=== PATIENT | male | born 1950 | race Caucasian/White ===

== ENCOUNTER → 2017-03-20 | Outpatient (CLI) | payer OTHER ==
[~2017-03-20] MED LIST: ASPIRIN81 M2 PO; BUMETANIDE2 M1 PO; COL-RITE250 MG PO; FUROSEMIDE40 MG PO; HYDROCODON-ACE1 EAC5 PO; K-DUR20 ME1; LEXAPRO20 MG PO; LIPITOR20 MG PO; LISINOPRIL20 MG PO; METOPROLOL SUC100 MG PO; MIRTAZAPINE30 M1 PO; NAPROSYN500 MG PO; OXYGEN; PANTOPRAZOLE SO40 MG PO; PERCOCET5/325 PO; PRAZOSIN HCL2 MG PO; PREDNISONE PO; PROAIR HFA8.5 GM INH; QUETIAPINE FUM400 MG PO; RIFAMPIN300 M1 PO; SPIRIVA18 MCG INH; SYNTHROID25 MCG PO; VITAMIN D250000 UNIT PO
--- NOTE | ~2017-03-20 | EKG ---
PATIENT: IAN SAL UNIT #: [id number] Ventricular Rate: 68 BPM Atrial Rate: 68 BPM P-R Interval: 154 ms QRS Duration: 80 ms Q-T Interval: 384 ms QTC Calculation(Bezet): 408 ms P [place]: -3 degrees Calculated R [place]: 16 degrees Calculated T [place]: 44 degrees Diagnosis Line: Normal sinus rhythm Diagnosis Line: Normal ECG Diagnosis Line: No previous ECGs available Diagnosis Line: Confirmed by MONI EUGENE MD ([id number]) on Diagnosis Line: 03/21/2017 4:00:09 PM INTERPRETING MDDebby CHUNG
[2017-03-20 11:51] LABS: HEMATOCRIT 41.7 % (38.0-50.0); HEMOGLOBIN 13.1 gm/dL (13.0-16.0); MEAN CORPUSCULAR HEMOGLOBIN 27.4 PG (28-34); MEAN CORPUSCULAR HGB CONC 31.4 g/dL (30-36); MEAN PLATELET VOLUME 8.1 FL (6.5-11.5); RED BLOOD COUNT 4.79 X10e (3.90-5.60); WHITE BLOOD COUNT 7.8 X10e3 (4.0-10.5)
[2017-03-20 11:54] LABS: URINE APPEARANCE CLEAR; URINE BILIRUBIN NEG (NEG); URINE BLOOD NEG (NEG); URINE COLOR YELLOW; URINE GLUCOSE NEG (NEG); URINE KETONE NEG (NEG); URINE LEUKOCYTE ESTERASE NEG (NEG); URINE NITRATE NEG (NEG); URINE PH 6.5 (5-8); URINE PROTEIN NEG (NEG); URINE SPECIFIC GRAVITY 1.014 (1.003-1.035); URINE UROBILINOGEN 0.2 MG/DL (NEG)
[2017-03-20 11:58] LABS: URINE SOURCE CLEAN CATCH
[2017-03-20 11:59] LABS: CULTURE INDICATED? NO
[2017-03-20 12:18] LABS: BUN/CREATININE RATIO 14.28; CALCIUM SERUM 8.7 mg/dL (8.4-10.2); CREATININE SERUM 0.7 mg/dL (0.6-1.4); GLOM FILT RATE Estimated 98.4 mL/min (>60); POTASSIUM 4.7 mmol/L (3.5-5.1)
== END | disposition home or self-care (01) ==
LOC: CAMB 10:50
PROVIDERS: Orthopaedic Surgery
DX: Z01.818 Encounter for other preprocedural examination (principal); M75.101 Unspecified rotator cuff tear or rupture of right shoulder, not specified as traumatic; M12.811 Other specific arthropathies, not elsewhere classified, right shoulder
CPT/HCPCS: 36415; 80048; 81003; 85027; 87070; 93005

== ENCOUNTER 2017-04-02 05:38 | Inpatient (IN) | payer OTHER ==
--- NOTE | ~2017-04-02 | DS ---
Unit #: [id number] #: [id number] Patient: IAN SAL SR [id number] [address] [place], [place] [address] [id number] I MR#: [id number] NAME: IAN SAL ROOM: [facility] Age: 66 Sex: M Admission Date: 04/02/2017 : 1950 Discharge Date: 04/05/2017 Attending Physician: Travis Dowell M.D. Primary Care Physician: Generic Doctor Not In System DISCHARGE SUMMARY ADMISSION DIAGNOSIS Right massive rotator cuff tear. DISCHARGE DIAGNOSIS Status post right reverse shoulder arthroplasty. SECONDARY DIAGNOSES 1. Chronic obstructive pulmonary disease. 2. Hypertension. 3. PTSD. 4. Hyperlipidemia. 5. Gastroesophageal reflux disease. 6. Hypothyroidism. 7. Hypoxia. PROCEDURES PERFORMED The patient underwent right reverse shoulder arthroplasty on the day of admission. HISTORY This is a 66-year-old male who has had a long history of right shoulder pain with right shoulder massive rotator cuff tear. He has had some type of surgery in the past. However, specifically what was done is unknown. He has failed both surgical as well as conservative management, so agreed to undergo operative treatment with right reverse shoulder arthroplasty. HOSPITAL COURSE The patient tolerated the procedure well and was transferred to the PACU and consequently the orthopedics floor. Postoperative day one he developed some hypoxia and was transferred to the unit. Pulmonary consult was obtained. He was treated with BiPAP and steroids. The patient seemed to respond very quickly to this and on postoperative day two was transferred out of the unit to the telemetry unit. He developed some restlessness and dry mouth. He was fidgety with difficulty sleeping. Pain was well controlled. He continues to be on oxygen at 2 liters on postoperative day three. Alcohol withdrawal protocol was started. The patient is quite anxious to be discharged. However, he continues to be on 2 liters of oxygen. With pulmonology and HIPS input will discharge with their approval and possible home O2 if required by pulmonology. DISCHARGE MEDICATIONS 1. Albuterol inhaler per pulmonary. 2. Prednisone 20 mg 2 tablets daily times 3 days per pulmonary. 3. Spiriva inhaler once daily. Unit #: [id number] #: [id number] Patient: IAN SAL SR 4. Lexapro 10 mg at bedtime. 5. Remeron 15 mg at bedtime. 6. Seroquel 200 mg at bedtime. 7. Dulera inhaler per pulmonary. 8. Metoprolol 50 mg once daily. 9. Senokot tablet b.i.d. 10. Bumetanide 1 mg daily. 11. Lipitor 20 mg 1 p.o. at bedtime. 12. Lisinopril 10 mg once daily. 13. Minipress 2 mg at bedtime. 14. Aspirin 81 mg daily at bedtime. 15. Pantoprazole 40 mg 1 b.i.d. 16. Potassium chloride 20 mEq b.i.d. 17. Synthroid 25 mcg once daily. 18. Vitamin D 50,000 units once weekly. 19. He was sent home on Percocet 5/325 mg #60, 1 p.o. q.6 h. p.r.n. pain. DISCHARGE INSTRUCTIONS Discharge instructions were given to him and gone over with him and are given to him in the form of a handout for him to have and review at home as needed. This includes covering sling, dressing and operative site care. The patient will follow up with Dr. Dowell in the office as scheduled postoperatively. If any concerns or questions he will call our office, [phone]. Dictated by... Courtney Alexander P.A.-C. for Maye LeviKP/gz TD: 04/05/2017 14:06 JOB #: [id number] DISCHARGE SUMMARY Page 1 of 1 X Courtney Alexander DISCHARGE SUMMARY
--- NOTE | ~2017-04-02 | CO ---
Unit #: [id number] #: [id number] Patient: IAN SAL SR [id number] [address] [place], [place] [address] [id number] I MR#: [id number] NAME: IAN SAL SR ROOM: 55 Age: 66 Sex: M Admission Date: 04/02/2017 : 1950 Attending Physician: Travis Dowell M.D. Primary Care Physician: Gentry Doctor Not In System Consultation Date: 04/04/2017 CONSULTATION REPORT REASON FOR CONSULTATION Respiratory failure. HISTORY OF PRESENT ILLNESS A 66-year-old gentleman with a known history of COPD, takes Symbicort at home and generally does well. He came to the hospital for right shoulder replacement. He apparently became sleepy yesterday. Arterial blood gas revealed respiratory acidosis and was transferred to the intensive care unit for mask ventilation. He also received steroids and nebulized bronchodilators. The patient states he had very little recollection of the event. He said he knew people were around him, but really could not respond. He denies shortness of breath, wheezing, mucopurulent sputum, cough, hemoptysis, pleurisy, chest pain. He has some mild cough with clear sputum. PAST MEDICAL HISTORY Remarkable for "mild" COPD, history of PTSD, hypercholesterolemia, depression, hypothyroidism, hypertension. MEDICATIONS At home according to med rec sheet, prazosin, Seroquel, Protonix, hydrocodone, aspirin, Bumex, lisinopril, metoprolol, mirtazapine, potassium, Lipitor, Lexapro, Synthroid. ALLERGIES No known medical allergies. SOCIAL HISTORY Quit smoking earlier this year. His of emphysema in October. FAMILY HISTORY No definite familial lung disease. REVIEW OF SYSTEMS He denies snoring or daytime sleepiness, certainly has the body habitus of sleep apnea. Currently denies any pulmonary symptoms as above. Denies chest pain, palpitations, abdominal pain, melena, hematochezia, hematuria, dysuria, focal weakness, paresthesias as unexplained by surgery. He did fall prior to surgery and has right hip bruise. Further review of systems negative. PHYSICAL EXAMINATION VITAL SIGNS: Reveals a patient, who is afebrile, pulse 96, respiratory Unit #: [id number] #: [id number] Patient: IAN SAL SR rate is 22, blood pressure is 112/64, 5 feet 8 inches, 248 pounds, BMI is 37. HEENT: Pupils are equal, round, and reactive to light. Sclerae anicteric. Head atraumatic. NECK: Supple. No supraclavicular or cervical adenopathy appreciated. He is edentulous with dentures in place. Mallampati class IV oropharynx. CHEST: Equal breath sounds. He does have some prolonged expiratory phase and some expiratory wheeze, best heard posterior. No consolidation. CARDIAC: Reveals regular rate and rhythm. No pathologic murmur, rub, or gallop. ABDOMEN: Soft and nontender. No hepatomegaly or rebound. EXTREMITIES: Reveal no clubbing, cyanosis, or significant edema. No calf tenderness. SKIN: Warm and dry without rash or diaphoresis. There is a bruise on his upper right leg. He is postop shoulder surgery on the right. NEUROLOGIC: No unexplained muscle or sensory deficits. DIAGNOSTIC STUDIES IMAGING STUDIES: Chest x-ray reveals mild right hemidiaphragm elevation and some bandlike atelectasis. LABORATORY RESULTS: Arterial blood gas reveals a pH of 7.2, pCO2 of 71, pO2 of 70 on 6 L. Repeat arterial blood gas yesterday afternoon, pH is 7.32, pCO2 of 53, pO2 of 78 on mask ventilation. He currently is awake and alert on low-flow oxygen. Saturation is 94%. He told me that he walked around the ICU with physical therapy and his saturations remained about 93%. BUN is 13, creatinine 0.9, potassium is 5.5. This was yesterday and apparently a repeat BMP has been drawn but is pending. White blood cell count is 10.7, hemoglobin is 10.1. CARDIOVASCULAR STUDIES: EKG unremarkable. IMPRESSION 1. Acute hypercapnic hypoxemic respiratory failure, most likely secondary to medication effect, chronic obstructive pulmonary disease and possible underlying sleep apnea, overall clinically improved. 2. Chronic obstructive pulmonary disease with mild bronchospasm. 3. Suspect obstructive sleep apnea given exam and clinical setting. 4. Postoperative shoulder surgery. 5. Posttraumatic stress disorder, etc. PLAN Treatment of his COPD with steroids and nebulized bronchodilators, incentive spirometry. I will check a room air arterial blood gas, and if compensated and adequate oxygenation, the patient theoretically could go home later today. If he remains hypoxemic or with persistent respiratory acidosis, I would continue treatment inpatient. If he does require inpatient treatment, transfer to telemetry is adequate. He would get a brief pulse of steroids, continue his Symbicort and albuterol. I would suggest outpatient PFTs and consider outpatient nocturnal polysomnography. Dictated by... Maye Giles/latricia TD: 04/05/2017 07:10 Unit #: [id number] #: [id number] Patient: IAN SAL SR JOB #: [id number] CC: Travis Dowell M.D. CONSULTATION REPORT Page 1 of 1 X Tayo Jones MD X CONSULTATION REPORT
--- NOTE | ~2017-04-02 | CO ---
Unit #: [id number] #: [id number] Patient: IAN SAL SR [id number] [address] [place], [place] [address] [id number] I MR#: [id number] NAME: IAN SAL SR ROOM: [facility] Age: 66 Sex: M Admission Date: 04/02/2017 : 1950 Attending Physician: Travis Dowell M.D. Primary Care Physician: Generic Doctor Not In System CONSULTATION REPORT REASON FOR CONSULTATION Hypoxia. HISTORY OF PRESENT ILLNESS The patient is a 66-year-old gentleman. We were asked to see in consult for hypoxia this afternoon. The patient is postop #2 from a right rotator cuff repair with Dr. Dowell. The patient have been noted to be somnolent earlier this morning, at which time all narcotics had been held. The patient had an ABG performed this afternoon for decreased mental status at which time, the pH was noted to 7.21, pCO2 was 71, and PO2 was 70. The patient does report a history of tobacco abuse, smokes approximately 3 to 4 cigarettes per day prior to surgery. No diagnosis of COPD and has never been seen by Pulmonary as well. The patient is arousable and is able to answer questions in the room, but falls asleep very quickly. REVIEW OF SYSTEMS He denies any shortness of breath at this time. Does endorse right shoulder pain. Denies any chest pain or abdominal pain. No nausea or vomiting. Ten out of 14 systems were reviewed, negative unless noted above. PAST MEDICAL HISTORY Significant for tobacco abuse as well as what appears to be hypertension. PAST SURGICAL HISTORY Significant for rotator cuff repair on April 02, 2017. ALLERGIES Apparently, no known drug allergies. MEDICATIONS At this time, were reviewed per the current MAR including the patient's oxycodone as well as scheduled Tylenol. SOCIAL HISTORY The patient does report smoking approximately 3 to 4 cigarettes per day. Denied alcohol use. FAMILY HISTORY Noncontributory at this time. PHYSICAL EXAMINATION VITAL SIGNS: The patient's temperature 97.8, heart rate 104, blood pressure 129/82, respiratory rate of 20, saturating 95% on 6 L nasal Unit #: [id number] #: [id number] Patient: IAN SAL SR. GENERAL: The patient appears to be an overweight middle-aged gentleman, who is in no acute distress, does arouse easily to questions and voice, but falls asleep just as quickly. HEENT: Pupils are equal and reactive to light. Oropharynx is clear. Mucous membranes appeared to be moist. Sclerae anicteric. NECK: Without lymphadenopathy. LUNGS: Noted for some mild to moderate expiratory wheezes anteriorly. No rales or rhonchi were appreciated. ABDOMEN: Obese. Positive bowel sounds. Soft and nontender. EXTREMITIES: No clubbing, cyanosis, or edema was noted. NEUROLOGIC: As stated, the patient does arouse easily to voice command, but drift off, may become drowsy quite easily. DIAGNOSTIC STUDIES IMAGING STUDIES: Chest x-ray has been ordered, but results are currently pending. LABORATORY RESULTS: White count of 9.5, hemoglobin of 10.5, platelets of 187. ASSESSMENT AND PLAN 1. Acute hypercapnic respiratory failure. I have asked RT to place the patient on BiPAP at this time. I have ordered an ABG to be checked one hour after BiPAP has been started, and also have requested Pulmonary consult as well, and I have spoken to Dr. Levy this afternoon myself. 2. Chronic obstructive pulmonary disease exacerbation. The patient does not have given diagnosis of chronic obstructive pulmonary disease. I have ordered one dose of IV Solu-Medrol given the patient's wheezing as well as q.4 hours DuoNeb and p.r.n. as well for shortness of breath. 3. Sedation. I have asked nurse to hold all narcotics until the patient is off the BiPAP at this time, and also checking a comprehensive metabolic panel as well this afternoon. Thank you for this consult. We will continue to follow. Dictated by... Aaron Oliver M.D. SARATH/latricia TD: 04/04/2017 14:26 JOB #: [id number] CONSULTATION REPORT Page 1 of 1 X X CONSULTATION REPORT
--- NOTE | ~2017-04-02 | CR72 ---
[facility] A Service of [facility] RADIOLOGY TEXT RESULTS PATIENT: IAN SAL SR LOCATION: [place] [address] : [birth year] UNIT #: [id number] AGE: [address]: Travis Dowell MD SEX: M ORDER DR: [id number] [facility] [address] [facility]. [place], [place] [address] [id number] I MR#: [id number] Acc #: [id number] NAME: IAN SAL SR : 1950 SEX: M STUDY DATE/TIME: 04/05/2017 6:25 UNIT: [facility] ROOM: [facility] STUDY DESCRIPTION: CR Chest Single View Portable Attending Physician: Travis Dowell M.D. Referring Physician: Dax King M.D. Ordering Physician: Dax King M.D. Primary Care Physician: Generic Doctor Not In System MEDICAL IMAGING REPORT This report is preliminary unless electronic signature is present EXAM Frontal chest, 04/05/2017. INDICATIONS 66-year-old male with shortness of air. Shoulder surgery 04/02/2017. Symptoms began today. Hypertension. TECHNIQUE Frontal chest compared with 04/03/2017. FINDINGS Postop changes right shoulder replacement present. Cardiac silhouette enlarged but stable. Lung volumes are low. The vascularity is within normal limits. Interval improvement of atelectasis associated with a minor fissure. There is persistent atelectasis in the right lung base. Mild volume loss on the right unchanged. No pneumothorax. IMPRESSION 1. Cardiomegaly. Persistent atelectasis in the right lung base and volume loss on the right. No pneumothorax. Dictated by... Josh Argueta M.D. THIS IS AN ELECTRONICALLY VERIFIED REPORT Josh Argueta M.D. at 04/06/2017 8:43 AM Leida TD: 04/05/2017 18:33 JOB #: [id number] MEDICAL IMAGING REPORT [facility] A Service of [facility] RADIOLOGY TEXT RESULTS PATIENT: IAN SAL SR [facility] [id number] : [birth year] UNIT #: [id number] AGE: [address]: Travis Dowell MD SEX: M ORDER DR: Page 1 of 1 COPY
--- NOTE | ~2017-04-02 | CR230 ---
[facility] A Service of [facility] RADIOLOGY TEXT RESULTS PATIENT: IAN SAL SR LOCATION: [facility] : [birth year] UNIT #: [id number] AGE: [address]: Travis Dowell MD SEX: M ORDER DR: [id number] [place] [address] [place], [place] [address] [id number] I MR#: [id number] Acc #: [id number] NAME: IAN SAL SR : 1950 SEX: M STUDY DATE/TIME: 04/02/2017 10:54 UNIT: [facility] ROOM: [facility] STUDY DESCRIPTION: CR Shoulder Min 2 View Rt Attending Physician: Travis Dowell M.D. Ordering Physician: Travis Dowell M.D. Primary Care Physician: Generic Doctor Not In System MEDICAL IMAGING REPORT This report is preliminary unless electronic signature is present EXAM Right shoulder 2 views INDICATION Postop right shoulder arthroplasty. COMPARISON No comparisons. FINDINGS There is a right shoulder arthroplasty. Hardware intact. Alignment anatomic. IMPRESSION Satisfactory appearance of the right shoulder arthroplasty. Dictated by... Art Villegas M.D. THIS IS AN ELECTRONICALLY VERIFIED REPORT Art Villegas M.D. at 04/03/2017 7:25 PM HERMINIA/lucille TD: 04/02/2017 13:07 JOB #: [id number] MEDICAL IMAGING REPORT Page 1 of 1 COPY
--- NOTE | ~2017-04-02 | OR ---
Unit #: [id number] #: [id number] Patient: IAN MONSALVE SR [id number] [address] [address] [id number] I MR#: [id number] NAME: IAN MONSALVE SR ROOM: [facility] Date of Procedure: 04/02/2017 Admission Date: 04/02/2017 Surgeon: Travis Dowell M.D. : 1950 Attending Physician: Travis Dowell M.D. Primary Care Physician: Generic Doctor Not In System OPERATIVE REPORT PREOPERATIVE DIAGNOSIS Right shoulder cuff tear arthropathy. POSTOPERATIVE DIAGNOSES 1. Right shoulder cuff tear arthropathy. 2. Right shoulder biceps tenosynovitis. PROCEDURES PERFORMED 1. Right reverse shoulder arthroplasty. 2. Right shoulder long head of the biceps tenodesis. IMPLANTS 1. DJO Surgical size 12 press-fit AltiVate stem with a 32, neutral humeral socket liner. 2. DJO Surgical P2 base plate with a 32, neutral glenosphere. IT SALES EXECUTIVE Courtney Barrios. ANESTHESIA General with interscalene nerve block. ESTIMATED BLOOD LOSS 100 mL. COMPLICATIONS None apparent. DRAINS None. INDICATIONS FOR PROCEDURE Mr. Monsalve is a 66-year-old gentleman with right shoulder massive rotator cuff tear and cuff tear arthropathy. He has failed one prior shoulder operation. The exact nature of this is not clear as to whether this was an attempted rotator cuff repair. At this point, he has failed his prior surgical intervention as well as conservative treatment. He has developed cuff tear arthropathy. He now presents for right reverse shoulder arthroplasty. DESCRIPTION OF PROCEDURE The patient was identified in the preoperative holding area. The Unit #: [id number] #: [id number] Patient: IAN MONSALVE SR operative site was marked. Preoperative antibiotics were administered. A regional anesthetic block was performed. The patient was brought to the operating room and placed supine on the operating table. A general anesthetic was induced. The patient was positioned into the beach-chair position. The right upper extremity was then prepped and draped in a sterile fashion. A standard deltopectoral approach was performed. Dissection was carried down to the cephalic vein. The vein was retracted medially with the pectoralis major muscle. The subdeltoid space was developed. The underlying humeral head was exposed. The pseudo-capsular tissue was removed. There was a full-thickness rotator cuff tear involving supraspinatus and infraspinatus tendons. There was a subscapularis tear as well. The subscapularis was dissected free from the underlying conjoined tendon, identified and mobilized. What was remaining of this inferiorly was released off the inferior humeral neck. The biceps was identified in a subluxed or dislocated position medially. This was reduced back to its normal position and then tenodesis was performed to the superior border of the pectoralis major tendon. The biceps was thickened and hypertrophic, and demonstrated tearing throughout. Following the tenodesis, the biceps was then incised proximally and then released off the glenoid. The shoulder was dislocated anteriorly and the humeral head osteotomy was performed. Any remaining osteophytes were removed. The shoulder was subluxed posteriorly and a circumferential capsular release was performed. The axillary nerve was identified by digital palpation and protected throughout the procedure. Once we had adequate glenoid exposure, we then drilled the centering airline transport pilot hole. A reaming tap was inserted followed by sequential reaming to the desired depth. We then inserted the base plate and achieved excellent purchase. We then drilled 4 peripheral locking screws and then placed our real glenosphere. The set-screw was then placed as backup fixation. The humerus was brought back into the operative field. The subscapularis was assessed. This was then identified and mobilized. It was still scarred, atrophic, and not amenable to repair. The humerus was then reamed with a metaphyseal reamer. We then sounded the canal with a size 10 reamer. We inserted a size 12 stem. This was proximal bone and was quite soft. This was then impacted and seated to the desired depth. The shoulder was then trialed. We selected a 32 neutral component. The real 32, neutral humeral socket liner was opened and impacted in place. The shoulder was reduced and taken through range of motion. The shoulder was stable with satisfactory deltoid tension. The subscapularis was not repaired; again, this was contracted and atrophic. The wound was then irrigated with dilute Betadine solution followed by pulsatile lavage. The wound was closed in a layered fashion including 0 Vicryl, 2-0 Vicryl, and running Monocryl in the skin. Steri-Strips and sterile dressings were applied. DISPOSITION Stable to the recovery room. Dictated by... Travis Dowell M.D. [facility] Unit #: [id number] #: [id number] Patient: DORON TOROIAN TD: 04/03/2017 05:51 JOB #: [id number] OPERATIVE REPORT Page 1 of 1 X Travis Dowell MD X PROCEDURE OPERATIVE NOTE
--- NOTE | ~2017-04-02 | CR72 ---
[facility] A Service of [facility] RADIOLOGY TEXT RESULTS PATIENT: IAN SAL SR LOCATION: [address] : [birth year] UNIT #: [id number] AGE: [address]: Travis Dowell MD SEX: M ORDER DR: [id number] [facility] [address] [facility]. [place], [place] [address] [id number] I MR#: [id number] Acc #: [id number] NAME: IAN SAL SR : 1950 SEX: M STUDY DATE/TIME: 04/03/2017 14:07 UNIT: C4B ROOM: [facility] STUDY DESCRIPTION: CR Chest Single View Portable Attending Physician: Travis Dowell M.D. Ordering Physician: Travis Dowell M.D. Primary Care Physician: Generic Doctor Not In System MEDICAL IMAGING REPORT This report is preliminary unless electronic signature is present EXAM Portable chest 04/03 COMPARISON STUDIES None HISTORY Shortness of breath beginning today. Status post shoulder surgery on 04/02. FINDINGS AP view is obtained. Cardiac size is enlarged. Patient has atelectasis in the right base with elevation of the right hemidiaphragm. There is evidence of mild passive congestion. CONCLUSION Cardiomegaly. Mild right basilar atelectasis with elevation of the right hemidiaphragm. Dictated by... Vivek Willingham M.D. THIS IS AN ELECTRONICALLY VERIFIED REPORT Vivek Willingham M.D. at 04/04/2017 10:22 AM [place] TD: 04/03/2017 18:54 JOB #: [id number] MEDICAL IMAGING REPORT Page 1 of 1 COPY
[~2017-04-02 05:38] MED LIST changes: -NAPROSYN500 MG PO; -OXYGEN; -PERCOCET5/325 PO; -PREDNISONE PO; -PROAIR HFA8.5 GM INH; -RIFAMPIN300 M1 PO; -SPIRIVA18 MCG INH
[2017-04-03 03:11] LABS: BASOPHIL% 0.4 % (0-2.5); EOSINOPHIL# 0.1 X10e3 (0-0.7); HEMATOCRIT 34.2 % (38.0-50.0); HEMOGLOBIN 10.5 gm/dL (13.0-16.0); LYMPHOCYTE# 1.1 X10e3 (1.0-3.5); LYMPHOCYTE% 11.6 % (17.0-45.0); MEAN CELL VOLUME 88.7 FL (83-96); MEAN CORPUSCULAR HEMOGLOBIN 27.3 PG (28-34); MEAN CORPUSCULAR HGB CONC 30.8 g/dL (30-36); MEAN PLATELET VOLUME 7.6 FL (6.5-11.5); MONOCYTE# 1.3 X10e3 (0-1.0); MONOCYTE% 13.6 % (3.0-12.0); NEUTROPHIL% 73.4 % (40-75); PLATELET COUNT 187 X10e3 (140-420); RED BLOOD COUNT 3.85 X10e (3.90-5.60); RED CELL DISTRIBUTION WIDTH 14.4 % (11.0-15.5); WHITE BLOOD COUNT 9.5 X10e3 (4.0-10.5)
[2017-04-03 03:12] LABS: DIFF IND NO
[2017-04-03 14:08] LABS: ARTERIAL BLD GAS O2 SATURATION 91.3 % (90.0-100.0); ARTERIAL BLOOD GAS CARBOXY HB 1.6 %sat (0.0-9.0); ARTERIAL BLOOD GAS MET HB 0.7 %sat (0.0-2.0); ARTERIAL BLOOD GAS pH 7.206 (7.350-7.450)
[2017-04-03 14:10] LABS: ARTERIAL BLOOD GAS ALLEN TEST ABNORMAL; ARTERIAL BLOOD GAS ART SITE LEFT RADIAL; ARTERIAL BLOOD GAS DELIVERY NASAL CANNULA; ARTERIAL BLOOD GAS PCO2 70.8 mmHg (35.0-45.0); ARTERIAL BLOOD GAS PO2 70.3 mmHg (80.0-100)
[2017-04-03 15:43] LABS: ALBUMIN SERUM 2.7 g/dL (3.5-5.0); BILIRUBIN,TOTAL 0.7 mg/dL (0.2-2.0); BUN/CREATININE RATIO 14.44; CALCIUM SERUM 7.4 mg/dL (8.4-10.2); CREATININE SERUM 0.9 mg/dL (0.6-1.4); GLOM FILT RATE Estimated 88.7 mL/min (>60); PROTEIN TOTAL SERUM 5.5 g/dL (6.0-8.3)
[2017-04-03 15:46] LABS: POTASSIUM 5.5 mmol/L (3.5-5.1)
[2017-04-03 16:29] LABS: ARTERIAL BLD GAS O2 SATURATION 94.2 % (90.0-100.0); ARTERIAL BLOOD GAS CARBOXY HB 1.6 %sat (0.0-9.0); ARTERIAL BLOOD GAS HCO3 27.3 mmol/L; ARTERIAL BLOOD GAS MET HB 0.7 %sat (0.0-2.0); ARTERIAL BLOOD GAS PCO2 53.4 mmHg (35.0-45.0); ARTERIAL BLOOD GAS PO2 78.9 mmHg (80.0-100); ARTERIAL BLOOD GAS pH 7.317 (7.350-7.450)
[2017-04-03 16:30] LABS: ARTERIAL BLOOD GAS ALLEN TEST NORMAL; ARTERIAL BLOOD GAS ART SITE LEFT RADIAL; ARTERIAL DRAW? YES
[2017-04-04 06:09] LABS: BASOPHIL% 0.2 % (0-2.5); EOSINOPHIL% 0.1 % (0.0-7.0); HEMATOCRIT 31.9 % (38.0-50.0); HEMOGLOBIN 10.1 gm/dL (13.0-16.0); LYMPHOCYTE# 1.1 X10e3 (1.0-3.5); LYMPHOCYTE% 10.3 % (17.0-45.0); MEAN CELL VOLUME 86.8 FL (83-96); MEAN CORPUSCULAR HEMOGLOBIN 27.5 PG (28-34); MEAN CORPUSCULAR HGB CONC 31.6 g/dL (30-36); MEAN PLATELET VOLUME 8.1 FL (6.5-11.5); MONOCYTE# 1.5 X10e3 (0-1.0); MONOCYTE% 14.1 % (3.0-12.0); NEUTROPHIL# 8.1 X10e3 (1.5-7.1); NEUTROPHIL% 75.3 % (40-75); PLATELET COUNT 189 X10e3 (140-420); RED BLOOD COUNT 3.68 X10e (3.90-5.60); RED CELL DISTRIBUTION WIDTH 14.1 % (11.0-15.5); WHITE BLOOD COUNT 10.7 X10e3 (4.0-10.5)
[2017-04-04 06:19] LABS: DIFF IND NO
[2017-04-04 11:19] LABS: ALBUMIN SERUM 2.7 g/dL (3.5-5.0); BILIRUBIN,TOTAL 0.7 mg/dL (0.2-2.0); BUN/CREATININE RATIO 15.55; CALCIUM SERUM 8.1 mg/dL (8.4-10.2); CREATININE SERUM 0.9 mg/dL (0.6-1.4); GLOM FILT RATE Estimated 88.7 mL/min (>60); PROTEIN TOTAL SERUM 5.8 g/dL (6.0-8.3)
[2017-04-04 12:21] LABS: ARTERIAL BLD GAS O2 SATURATION 86.6 % (90.0-100.0); ARTERIAL BLOOD GAS CARBOXY HB 1.5 %sat (0.0-9.0); ARTERIAL BLOOD GAS HCO3 26.4 mmol/L; ARTERIAL BLOOD GAS MET HB 0.6 %sat (0.0-2.0); ARTERIAL BLOOD GAS PCO2 42.1 mmHg (35.0-45.0); ARTERIAL BLOOD GAS pH 7.406 (7.350-7.450)
[2017-04-04 12:22] LABS: ARTERIAL BLOOD GAS ALLEN TEST NORMAL; ARTERIAL BLOOD GAS ART SITE LEFT RADIAL; ARTERIAL BLOOD GAS DELIVERY ROOM AIR; ARTERIAL BLOOD GAS PO2 51.5 mmHg (80.0-100); ARTERIAL DRAW? YES
[2017-04-05 06:36] LABS: BASOPHIL% 0.2 % (0-2.5); EOSINOPHIL% 0.2 % (0.0-7.0); HEMATOCRIT 29.6 % (38.0-50.0); HEMOGLOBIN 9.4 gm/dL (13.0-16.0); LYMPHOCYTE# 1.1 X10e3 (1.0-3.5); LYMPHOCYTE% 10.7 % (17.0-45.0); MEAN CELL VOLUME 85.1 FL (83-96); MEAN CORPUSCULAR HEMOGLOBIN 27.1 PG (28-34); MEAN CORPUSCULAR HGB CONC 31.8 g/dL (30-36); MEAN PLATELET VOLUME 8.1 FL (6.5-11.5); MONOCYTE# 1.4 X10e3 (0-1.0); MONOCYTE% 13.9 % (3.0-12.0); NEUTROPHIL# 7.7 X10e3 (1.5-7.1); PLATELET COUNT 197 X10e3 (140-420); RED BLOOD COUNT 3.48 X10e (3.90-5.60); RED CELL DISTRIBUTION WIDTH 14.1 % (11.0-15.5); WHITE BLOOD COUNT 10.3 X10e3 (4.0-10.5)
[2017-04-05 06:51] LABS: DIFF IND NO
[2017-04-05 06:59] LABS: ALBUMIN SERUM 2.5 g/dL (3.5-5.0); BILIRUBIN,TOTAL 0.3 mg/dL (0.2-2.0); BUN/CREATININE RATIO 16.66; CALCIUM SERUM 8.3 mg/dL (8.4-10.2); CREATININE SERUM 0.6 mg/dL (0.6-1.4); GLOM FILT RATE Estimated 104.8 mL/min (>60); POTASSIUM 4.3 mmol/L (3.5-5.1); PROTEIN TOTAL SERUM 5.2 g/dL (6.0-8.3)
[2017-04-05] MEDS ORDERED: PERCOCET5/325 PO (12:48)
[2017-04-05] MEDS ORDERED: PREDNISONE PO (12:49)
[2017-04-05] MEDS ORDERED: SPIRIVA18 MCG INH (12:50)
[2017-04-05] MEDS ORDERED: PROAIR HFA8.5 GM INH (12:58)
[2017-04-05] MEDS ORDERED: OXYGEN (13:16)
== END 2017-04-05 15:29 | disposition home or self-care (01) | DRG 483 ==
LOC: CSUR 05:38 → C4B 07:00 → CPACUOF 07:00 → CSUR 07:30 → CPACUOF 09:01 → CSUR 09:01 → C4B 09:01 → CPACUOF 12:39 → CICCU2 04-03 22:04 → C5B 04-04 18:26
PROVIDERS: Internal Medicine; Orthopaedic Surgery
PROC: 0RRJ00Z Replacement of Right Shoulder Joint with Reverse Ball and Socket Synthetic Substitute, Open Approach (ICD-10-PCS; principal; 2017-04-02 07:30)
DX: M75.101 Unspecified rotator cuff tear or rupture of right shoulder, not specified as traumatic (principal); J96.01 Acute respiratory failure with hypoxia; J96.02 Acute respiratory failure with hypercapnia; E87.2 Acidosis; J44.1 Chronic obstructive pulmonary disease with (acute) exacerbation; E44.1 Mild protein-calorie malnutrition; D62 Acute posthemorrhagic anemia; E87.1 Hypo-osmolality and hyponatremia; I10 Essential (primary) hypertension; F43.10 Post-traumatic stress disorder, unspecified; E78.5 Hyperlipidemia, unspecified; K21.9 Gastro-esophageal reflux disease without esophagitis; E03.9 Hypothyroidism, unspecified; J98.01 Acute bronchospasm; T40.605A Adverse effect of unspecified narcotics, initial encounter; M65.811 Other synovitis and tenosynovitis, right shoulder; E87.5 Hyperkalemia; F10.20 Alcohol dependence, uncomplicated; Z68.37 Body mass index [BMI] 37.0-37.9, adult
CPT/HCPCS: 36600; 71010; 73030; 80053; 82803; 85025; 94640; 94660; 94664; 94760; 94761; 97110; 97116; 97163; 97530; C1713; C1776; G8978-GP; G8979-GP; J0131; J0330; J0690; J1885; J2250; J2270; J2310; J2370; J2405; J2795; J2930; J3010

== ENCOUNTER 2017-04-15 09:39 | Inpatient (IN) | payer OTHER ==
[~2017-04-15] VITALS: Ht 174 cm; Wt 114.0 kg
--- NOTE | ~2017-04-15 | CO ---
Unit #: [id number] #: [id number] Patient: IAN SAL SR [id number] [address] [place], [place] [address] [id number] MR#: [id number] NAME: IAN SAL SR ROOM: [facility] hospital Age: 66 Sex: M Admission Date: 04/15/2017 : 1950 Attending Physician: Travis Dowell M.D. Primary Care Physician: Generic Doctor Not In System Consultation Date: 04/17/2017 CONSULTATION REPORT REASON FOR CONSULTATION Antibiotic management in a patient with right shoulder arthroplasty infection. HISTORY OF PRESENT ILLNESS This is a 66-year-old male status post right reverse shoulder arthroplasty secondary to a massive right rotator cuff tear on 04/02/2017. Post procedure patient did require some ICU stay secondary to low sats but essentially did well and was discharged home. Patient reports that he followed up with his surgeon and he reported that he had continuous drainage from his incision site. Patient reports he did not have any fever at home and was not significantly purulent and did not have any odor. However, the surgeon was concerned and took him to the OR for evacuation of hematoma and explored the joint space on April 15, 2017. Patient's cultures are all growing MSSA and Infectious Disease was asked to evaluate. Patient did require again a small stay in the ICU after procedure secondary to hypoxia. He is a smoker but he has since been transferred out of the ICU. Patient is sitting up and eating but his main complaint is not shoulder pain, it is actually some bladder discomfort and reports that he has not significantly urinated since the procedure. Patient has been transitioned from vancomycin to nafcillin today as well. PAST MEDICAL HISTORY Past medical history includes COPD, post traumatic stress disorder, hypercholesterolemia, depression, hypothyroidism and hypertension. MEDICATIONS Patient is currently on nafcillin. He was previously on vancomycin. For other medications please refer to the patient's MAR. ALLERGIES No known allergies. SOCIAL HISTORY Patient has positive tobacco abuse, no alcohol abuse or other drug use. He does have a history of post traumatic stress disorder and he is a patient of the [facility]. REVIEW OF SYSTEMS Patient denies any fevers, chills or sweats at home. He denies any chest pain, shortness of breath, nausea, vomiting, diarrhea. He currently reports that he has not urinated significantly since his surgery yesterday and he does have some bladder pressure. He reports mild discomfort in his Unit #: [id number] #: [id number] Patient: IAN SAL SR right shoulder. PHYSICAL EXAMINATION VITAL SIGNS: Temperature 98.0, pulse is 74, blood pressure is 120/68 and respiratory rate is 18. GENERAL: This is a no apparent distress male who is sitting in the bed comfortably, eating dinner. EYES: His pupils are equal. NECK: His neck is supple. CARDIOVASCULAR: S1, S2, regular rate and rhythm. PULMONARY: Clear to auscultation bilaterally with no wheezes or rhonchi noted. ABDOMEN: Positive bowel sounds, obese, mild discomfort over bladder, otherwise no tenderness, no flank pain. EXTREMITIES: Right shoulder is currently in a VAC dressing. There is a Hemovac as well. He has some trace edema in the lower extremities. DIAGNOSTIC STUDIES LABORATORY: BUN 12, creatinine 0.7, sodium 133, potassium 3.9, chloride 102, CO2 27, bilirubin 0.3, when last checked, AST 41, ALT 16 on April 05, white blood cell count 13.1 and on admission was 10.7, hemoglobin 9.7, hematocrit 31.9, platelets 304. Microbiology data: March 16 and March 17 cultures all show MSSA. IMAGING: A 04/16 chest x-ray showed stable elevation of right hemidiaphragm with right basilar density likely atelectasis. The lungs are otherwise clear and no effusions. Right shoulder film shows postop changes with right shoulder arthroplasty with normal alignment, drain is in place, with some gas within the subacromial space. IMPRESSION This is a 66-year-old male, status post right reverse shoulder arthroplasty secondary to rotator cuff tear on 04/02/2017. Patient returned with drainage at his incision site thought to be hematoma, status post evacuation and debridement of the glenohumeral joint. OR cultures are consistent with methicillin-sensitive Staphylococcus aureus and will agree to treat patient as an infected right shoulder arthroplasty secondary to MSSA. Due to joint space involvement patient will require six weeks of antibiotic therapy. Patient is to continue nafcillin but will increase dose to 2 g IV q.4 h. For ease of therapy at discharge, patient can either continue on nafcillin drip or be placed on Kefzol 2 g IV q.8 h. However, as patient is a and gets his care done at the [facility] will discuss with them their preference. Patient may also benefit from Rifampin but will discuss with Dr. Ankit Collier. Will place a PICC line in the left upper extremity. Patient also complains of no significant urination and some tenderness and pain over the bladder with fullness. Will check a bladder scan and if greater than 100 mL will ask the nursing staff to straight cath the patient and notify the primary team and will defer further management to them. Will check a CBC, BMP, CRP and sed rate in the a.m. This case will be discussed with Dr. Ankit Collier. Thank you for allowing us to participate in the care of this patient and further recommendations will follow pending the patient's clinical course. Unit #: [id number] #: [id number] Patient: IAN SAL SR Dictated by... Arnaldo LoboPTinaR.N. for Maye Laura/donny TD: 04/17/2017 17:38 JOB #: [id number] CONSULTATION REPORT Page 1 of 1 X X CONSULTATION REPORT
--- NOTE | ~2017-04-15 | OR ---
Unit #: [id number] #: [id number] Patient: IAN MONSALVE SR [id number] [address] [address] [id number] I MR#: [id number] NAME: IAN MONSALVE ROOM: [facility] Date of Procedure: 04/16/2017 Admission Date: 04/15/2017 Surgeon: Travis Dowell M.D. : 1950 Attending Physician: Travis Dowell M.D. OPERATIVE REPORT PREOPERATIVE DIAGNOSIS Infected right reverse shoulder arthroplasty. POSTOPERATIVE DIAGNOSIS Infected right reverse shoulder arthroplasty. PROCEDURE PERFORMED Right revision reverse shoulder arthroplasty with humeral and glenoid component exchange. CONTINUOUS PILLOWCASE CUTTER Courtney Barrios. ANESTHESIA General. ESTIMATED BLOOD LOSS 50 mL. DRAINS Medium Hemovac x1, Prevena incisional wound VAC system. IMPLANTS 1. DJO Surgical size 32, neutral glenosphere. 2. DJO Surgical size 32, +4 semiconstrained humeral socket liner. INDICATIONS FOR PROCEDURE Mr. Monsalve is a 66-year-old gentleman, who is 2 weeks status post a right reverse shoulder arthroplasty. He returned at his first postoperative visit with drainage from the wound. He had a cloudy-appearing hematoma. This was washed out last night in the operating room. Cultures were taken superficial, deep, and at the implant. Cultures returned back positive less than 12 hours later this morning on morning rounds. We therefore elected to proceed with repeat washout with component exchange. It was not clear from the records if it was only superficial cultures which were positive or all cultures were positive. Risks, benefits, and alternatives were thoroughly reviewed and he elected to proceed. DESCRIPTION OF PROCEDURE The patient was identified in the preoperative holding area. The Unit #: [id number] #: [id number] Patient: IAN MONSALVE SR operative site was marked. Preoperative antibiotics were not indicated as he is on standing vancomycin. A regional block was not performed. The patient was brought to the operating room and placed supine on the operating table. General anesthetic was induced. The patient was then positioned into the beach-chair position. The previous surgical incision was reopened. Dissection was carried back down through the subcutaneous tissues down to the deltopectoral interval. There was a small fluid collection here at the deltopectoral interval. This was evacuated. The deeper fascia remained intact. Sutures were cut and removed and dissection was then easily made back down to the implants. All suture material were removed given our dissection. We did take superficial cultures again from the right shoulder. The shoulder was then dislocated anteriorly. The polyethylene humeral socket liner was removed with a set of osteotomes. This was removed without any damage to the underlying humeral component. Cultures were taken of the membrane on the backside of the polyethylene liner. These were marked as humeral component. The humeral component was then dislocated posteriorly and the glenosphere removed. Again, cultures were taken on the membrane on the backside of the glenosphere. The wound was then thoroughly irrigated with Irrisept as well as dilute Betadine solution and then finally bacitracin infused pulsatile lavage. We then again irrigated with saline lavage. We then changed instruments and gloves and obtained a clean setup. The real components were then reimplanted. The glenoid component was impacted in place and the set screw secured. The humerus was then delivered back anteriorly in the operative field and the humeral component implanted. We did upsize the humerus to a +4 semiconstrained humeral socket liner as he did have some laxity on the neutral liner. The shoulder was then relocated and taken through range of motion. The shoulder was stable without any evidence or concern for postoperative instability. The wound was again irrigated and then closed in a layered fashion with 0 PDS in the deltopectoral interval. A drain was then placed actually superficial to the deltopectoral interval as this was the area of recurrent fluid collection today. We then closed the subcutaneous tissue over this with 2-0 PDS followed by running Monocryl in the skin. The Prevena incisional wound VAC management system was then applied. DISPOSITION Stable to the recovery room. POSTOPERATIVE PLAN We will plan for 6-week course of IV antibiotics. We will consult Infectious Disease for assistance with antibiotic selection, but he would like to be on vancomycin or similar. Dictated by... Maye Levi/latricia TD: 04/17/2017 13:41 JOB #: [id number] Unit #: [id number] #: [id number] Patient: IAN MONSALVE SR OPERATIVE REPORT Page 1 of 1 X Travis Dowell MD PROCEDURE OPERATIVE NOTE
--- NOTE | ~2017-04-15 | US84 ---
[id number] [facility] [address] [facility]. [place], [place] [address] [id number] I MR#: [id number] Acc #: [id number] NAME: IAN SAL : 1950 SEX: M STUDY DATE/TIME: 04/17/2017 16:57 UNIT: C3A PCU ROOM: 339 STUDY DESCRIPTION: US LE Veins Complete Jonny Stdy Attending Physician: Travis Dowell M.D. Ordering Physician: Tayo Jones M.D. Primary Care Physician: Generic Doctor MEDICAL IMAGING REPORT This report is preliminary unless electronic signature is present EXAM Bilateral lower extremity venous ultrasound, 04/17/2017. HISTORY Evaluate for DVT, low sats, edema. Pain, swelling, bilateral lower extremities for 2 days. TECHNIQUE Venous ultrasound examination of both lower extremities was performed using grayscale, spectral Doppler and color flow Doppler imaging. FINDINGS The examination is negative. There is no evidence of deep venous thrombus from the groin to the lower calf bilaterally. Visualized greater saphenous veins are also patent. IMPRESSION Negative examination. No evidence of lower extremity DVT. Dictated by... Vivek Heart M.D. THIS IS AN ELECTRONICALLY VERIFIED REPORT Vivek Heart M.D. at 04/18/2017 7:11 PM Tashi TD: 04/17/2017 23:26 JOB #: [id number] MEDICAL IMAGING REPORT Page 1 of 1 COPY
--- NOTE | ~2017-04-15 | OR ---
Unit #: [id number] #: [id number] Patient: IAN MONSALVE SR 604333 [address] [address] [id number] I MR#: [id number] NAME: IAN MONSALVE SR ROOM: [facility] Date of Procedure: 04/15/2017 Admission Date: 04/15/2017 Surgeon: Travis Dowell M.D. : 1950 Attending Physician: Travis Dowell M.D. OPERATIVE REPORT PREOPERATIVE DIAGNOSIS Right shoulder postoperative hematoma. POSTOPERATIVE DIAGNOSIS Right shoulder postoperative hematoma. PROCEDURES PERFORMED Right shoulder hematoma evacuation and debridement of glenohumeral joint. HOT MILL TIN ROLLER Courtney Barrios. ANESTHESIA General. ESTIMATED BLOOD LOSS Approximately 100 mL of old hematoma fluid and 30 mL of new surgical blood loss. SPECIMENS Cultures x3 to microbiology including superficial deep and implant. INDICATIONS FOR PROCEDURE Mr. Monsalve is a 66-year-old gentleman, who has undergone a previous right reverse shoulder arthroplasty. He now returns in his postoperative followup visit complaining of drainage from the surgical incision. There is expressible fluid from his incision. There was a palpable hematoma. We discussed evacuation of the hematoma and culture. He elects to proceed. DESCRIPTION OF PROCEDURE The patient was identified in the preoperative holding area. The operative site was marked. Preoperative antibiotics were held pending cultures. The patient was brought to the operating room and placed supine on the operating table. A general anesthetic was induced. The patient was positioned on a standard operating table in a semirecumbent position with the arm on a padded Cedeño. The arm was prepped and draped in sterile fashion. The previous incision was reopened. We immediately obtained old hematoma fluid. This was cultured taking superficial culture in the subcutaneous pocket. An incision was opened further proximally and distally. There was a small bleeding vessel adjacent to the dura coming off the cephalic Unit #: [id number] #: [id number] Patient: IAN MONSALVE SR vein. . We sutured ligated the vein. Once the subcutaneous pocket was evacuated, the deeper fascia was inspected. It was intact, but with a small punctate area. A hemostat was passed into this and a large efflux of hematoma fluid came out. The previous Vicryl suture from the deltopectoral interval was removed and then cultures taken of the fluid in the deeper subfascial pocket. This was then evacuated with suction. We then took one last set of cultures from the actual glenosphere and humeral component themselves. We then debrided the fibrinous material from around the humeral and glenoid component. A small portion of this was placed in the cultures from the implant. None of this appeared grossly infectious. The wound was then irrigated using IrriSept as well as dilute Betadine solution and bacitracin infused saline followed by standard sterile saline. Hemostasis was achieved with a combination of Bovie and Aquamantys bipolar electrocautery. A drain was then placed in the deltopectoral interval medially keeping the drain off the implant itself. The wound was then closed with 0 PDS in the deltopectoral interval and 2-0 PDS in the subcutaneous tissues. We closed this in a complex layered fashion to try to eliminate any remaining space. The skin was closed with a running Monocryl. Steri-Strips and sterile dressings were applied. DISPOSITION Stable to the recovery room. POSTOPERATIVE PLAN We will keep him on empiric vancomycin pending cultures. Dictated by... Maye Levi/latricia TD: 04/16/2017 16:08 JOB #: [id number] OPERATIVE REPORT Page 1 of 1 X Travis Dowell MD X PROCEDURE OPERATIVE NOTE
--- NOTE | ~2017-04-15 | CR71 ---
[facility] A Service of [facility] RADIOLOGY TEXT RESULTS PATIENT: IAN SAL SR LOCATION: [place] [address] : [birth year] UNIT #: [id number] AGE: [address]: Travis Dowell MD SEX: M ORDER DR: [id number] [facility] [address] [facility]. [place], [place] [address] [id number] I MR#: [id number] Acc #: [id number] NAME: IAN SAL SR : 1950 SEX: M STUDY DATE/TIME: 04/16/2017 19:43 [facility] STUDY DESCRIPTION: CR Chest Single View Attending Physician: Travis Dowell M.D. Ordering Physician: Grady Perez M.D. Primary Care Physician: Generic Doctor Not In System MEDICAL IMAGING REPORT This report is preliminary unless electronic signature is present EXAM Chest single view portable 04/16/2017 19:43 hours HISTORY 66-year-old man with shortness of air with activity postoperatively. Symptoms began today. COMPARISON 04/05/2017 FINDINGS Portable upright chest demonstrates normal heart size. There is moderate elevation of the right hemidiaphragm unchanged. There is linear right basilar density adjacent to the elevated hemidiaphragm likely plate-like atelectasis. There is no acute pulmonary density or pleural effusion. There is postop change of right shoulder replacement. IMPRESSION Stable elevation of the right hemidiaphragm with right basilar density likely atelectasis. The lungs are otherwise clear, and there are no effusions. Dictated by... Karo Kam M.D. THIS IS AN ELECTRONICALLY VERIFIED REPORT Karo Kam M.D. at 04/17/2017 9:27 AM KAREN/kayode TD: 04/16/2017 22:07 JOB #: [id number] [facility] A Service of [facility] RADIOLOGY TEXT RESULTS PATIENT: IAN SAL SR [facility]: [facility] [id number] : [birth year] UNIT #: [id number] AGE: [address]: Travis Dowell MD SEX: M ORDER DR: MEDICAL IMAGING REPORT Page 1 of 1 COPY
--- NOTE | ~2017-04-15 | CO ---
Unit #: [id number] #: [id number] Patient: IAN MONSALVE SR [id number] [address] [address] [id number] I MR#: [id number] NAME: IAN MONSALVE SR ROOM: [facility] Age: 66 Sex: M Admission Date: 04/15/2017 : 1950 Attending Physician: Travis Dowell M.D. Primary Care Physician: Gentry Doctor Not In System Consultation Date: 04/17/2017 CONSULTATION REPORT REASON FOR CONSULTATION Respiratory failure. HISTORY OF PRESENT ILLNESS A 66-year-old gentleman who gets most of his medical care at the [facility], has COPD, likely sleep apnea, and was seen by myself in March of this year. He had shoulder surgery, suffered from respiratory failure. He was seen in the intensive care unit for hypercapnic hypoxemic respiratory failure. He has underlying COPD, likely obstructive sleep apnea, clinically improved. He was discharge on oxygen but fairly quickly at home quit using it and stated his saturations were 98%. He is on Symbicort twice a day and states compliance but does not wear his oxygen. Pulmonary sheehan, he was doing well. He then had swelling in his shoulder and ultimately was found to have infection and he has undergone shoulder component replacement. He had hypoxemic respiratory failure requiring a nonrebreather mask and was transferred to the intensive care unit. With pulmonary hygiene and awakening from surgery, his saturations improved without noninvasive mask ventilation. Saturations now are adequate on a 10 L Oxymizer. He is awake and alert and actually has no complaints. He never had any shortness of breath, chest pain, wheezing, sputum production, or cough. He feels his normal self. PAST MEDICAL HISTORY 1. Remarkable for this episode following surgery and he states it always happens after surgery. 2. History of COPD. 3. Likely obstructive sleep apnea. 4. Posttraumatic stress disorder. 5. Hypertension. 6. Hypothyroidism. 7. Coronary artery disease with a stent followed by the [facility] but he denies history of PR or congestive heart failure. 8. He is treated for edema. 9. He has a history of chronic respiratory failure, noncompliant with oxygen. 10. Depression. MEDICATIONS Currently include: 1. Vancomycin. 2. Senokot. 3. Lipitor. 4. Colace. 5. Lexapro. Unit #: [id number] #: [id number] Patient: IAN MONSALVE SR 6. Synthroid. 7. Minipress. 8. Seroquel. 9. Protonix. 10. Spiriva. 11. Proventil Mini nebs. 12. Bumex. 13. Zestril. 14. Toprol. 15. Remeron. 16. Potassium. 17. Vancomycin. 18. IV fluids. ALLERGIES No known medical allergies. SOCIAL HISTORY He continues to smoke. He does drink four or five beers every day. FAMILY HISTORY No definite familial lung disease. REVIEW OF SYSTEMS Negative, other than swelling. Denies chest pain, palpitations, abdominal pain, melena, nausea, hematuria, dysuria, focal weakness, paraesthesias, leg pain. He does have some swelling that he says "I take medicine for." No headache, dizziness. He feels normal and actually is asking about discharge. PHYSICAL EXAMINATION GENERAL: A gentleman who is comfortable on 10 L Oxymizer, saturations ranging from 93% to 96%. He is awake and alert, up in the chair, actually getting ready to receive a shave. VITAL SIGNS: Afebrile. Pulse 79, respiratory rate 18, blood pressure 139/55. Height 5 foot 8 inches, 255 pounds. BMI is 36. HEENT: Pupils equal, round, and reactive to light. Sclerae anicteric. Head atraumatic. Mallampati class IV oropharynx. NECK: Supple. No supraclavicular or cervical adenopathy appreciated. CHEST: Decreased breath sounds. Fairly short expiratory phase. No consolidation or stridor. CARDIAC: Reveals distant heart tones. Regular rate and rhythm. No pathologic murmur, rub, or gallop. ABDOMEN: Soft, nontender. No hepatomegaly or rebound. EXTREMITIES: Reveal no clubbing, cyanosis. He does have 1 to 2+ edema bilaterally. No calf tenderness. SKIN: Warm and dry without rash or diaphoresis. NEUROLOGIC: Grossly intact. No focal unexplained muscle or sensory deficits. DIAGNOSTIC STUDIES LABORATORY: Arterial blood gas: A pH 7.4, pCO2 of 42, pO2 of 51; that was on room air on the 30. I do not see where a blood gas has been checked this admission. BUN 12, creatinine 0.7. White blood cell count 13, hemoglobin 9.7, platelet count 304,000. Wound is MSSA. IMAGING: Chest x-ray: Chronic right hemidiaphragm elevation with some band-like atelectasis. No pneumonia noted. Unit #: [id number] #: [id number] Patient: IAN MONSALVE SR CARDIOVASCULAR: Rhythm strips have been sinus. No recent EKG. IMPRESSION 1. Postoperative shoulder component replacement with methicillin-sensitive Staphylococcus aureus infection. 2. Chronic obstructive pulmonary disease. 3. Respiratory failure, acute on chronic, likely secondary to post anesthetic effects, some hypoventilation and atelectasis with underlying chronic obstructive pulmonary disease. 4. Peripheral edema and possible component of congestive heart failure, although lux pulmonary edema not identified on exam or chest x-ray. 5. Coronary artery disease with [facility] with vague details. 6. Anemia. 7. Chronic right hemidiaphragm elevation. PLAN 1. A trial of Lasix. 2. Nebulized bronchodilators. 3. I will add inhaled cortical steroids and long-acting beta agonist to maximum pulmonary status. Given his recent surgery and infection, I will try to avoid systemic steroids. 4. Lower extremity venous Dopplers will be performed but my suspicion for thromboembolic disease is low. 5. Ultimately, he will need outpatient PFTs and nocturnal polysomnography. 6. Certainly, no smoking is of great benefit. This once again has been discussed. 7. Compliance with oxygen has been discussed as well and I suspect he will need to use his oxygen 24 hours a day after discharge from this hospitalization. Thank you very much for allowing me to participate in the care of Mr. Monsalve. Dictated by... Tayo Jones M.D. JAYSHREE/laura TD: 04/17/2017 15:34 JOB #: [id number] CC: Travis Dowell M.D. CONSULTATION REPORT Page 1 of 1 X Tayo Jones MD X CONSULTATION REPORT
--- NOTE | ~2017-04-15 | CO ---
Unit #: [id number] #: [id number] Patient: IAN SAL SR [id number] [address] [place], [place] [address] [id number] I MR#: [id number] NAME: IAN SAL SR ROOM: [facility] Age: 66 Sex: M Admission Date: 04/15/2017 : 1950 Attending Physician: Travis Dowell M.D. Primary Care Physician: Generic Doctor Not In System CONSULTATION REPORT REASON FOR CONSULTATION Hypertension with bradycardia. HISTORY OF PRESENT ILLNESS This is a 66-year-old gentleman, who has a prior history of hypertension. He has a history of coronary artery disease, stenting [place] [address] Hou. He was admitted here because he had an infection in his right shoulder. He is receiving appropriate antibiotics. This patient is ready to go home. He was found to have blood pressures in the 100/60 and bradycardia. Plan at this moment, he has no symptoms and denies any chest pain, short of breath, orthopnea, PND, palpitation, or syncope. PAST MEDICAL HISTORY Positive for hypertension; coronary artery disease, stenting to his LAD. He also has a history of congestive heart failure and has a history of COPD. MEDICATIONS He takes Lipitor. He also takes Synthroid, Toprol-XL, lisinopril, and Bumex. ALLERGIES Not allergic to any medications. SOCIAL HISTORY He continues to smoke and drinks 4 to 5 beers per day. FAMILY HISTORY Negative for premature cardiac disease. REVIEW OF SYSTEMS He has a lot of back pain and pain in the knees. Of course, he has pain in his right shoulder. He denies any numbness or tingling. Denies any skin rash. All other systems reviewed, they are negative. PHYSICAL EXAMINATION GENERAL: He is lying comfortably in bed, not in distress. VITAL SIGNS: Heart rate is 64, blood pressure is 140/60. He is breathing at respiratory rate of 16. HEENT: Eyes, conjunctivae normal. Pupils are round and reactive. Oral mucosa is moist. No central cyanosis. NECK: He has no thyromegaly. Carotid upstroke is normal. No bruits. JVD is not elevated. CHEST: He is breathing normal and clear on auscultation. Unit #: [id number] #: [id number] Patient: IAN SAL SR CARDIAC: He has no parasternal lift. S1 and S2 normally heard. No gallop. No murmur. ABDOMEN: Soft. Liver and spleen not enlarged. Abdominal aorta not palpable. Guaiac test not indicated. EXTREMITIES: He has no pedal edema. 2+ bilateral femoral and dorsalis pedis vessels. Digits, no clubbing. SKIN: No rash or abnormal pigmentation. NEUROLOGIC: He is oriented x3. Mood is normal. Muscle tone in all extremities normal. DIAGNOSTIC STUDIES IMAGING STUDIES: EKG showing sinus rhythm with nonspecific ST and T changes. He definitely has one rhythm showing bradycardia, but it is sinus bradycardia. ASSESSMENT 1. Episode of sinus bradycardia that is related to his beta blockers. 2. Hypertension, borderline controlled. 3. History of chronic obstructive pulmonary disease. 4. Right shoulder infection. PLAN From a cardiac standpoint of view, at this moment he is on lisinopril, Toprol-XL, and Bumex. I will continue with that. He can be discharged home. He will be followed with his weir fisherman, Dr. Hou in 4 weeks. Dictated by... Maye Lee/latricia TD: 04/23/2017 05:09 JOB #: [id number] CONSULTATION REPORT Page 1 of 1 X Emigdio Upton MD X CONSULTATION REPORT
--- NOTE | ~2017-04-15 | XA166 ---
[facility] A Service of [facility] RADIOLOGY TEXT RESULTS PATIENT: IAN SAL SR LOCATION: [facility] 339- : 50 UNIT #: [id number] AGE: [address]: Travis Dowell MD SEX: M ORDER DR: [id number] [facility] [address] [place], [place] [address] [id number] I MR#: [id number] Acc #: [id number] NAME: IAN SAL : 1950 SEX: M STUDY DATE/TIME: 04/18/2017 8:18 [facility] ROOM: [facility] STUDY DESCRIPTION: XA PICC Line Placement WO Port Attending Physician: Travis Dowell M.D. Ordering Physician: Rajan Christie M.D. Primary Care Physician: Generic Doctor Not In System MEDICAL IMAGING REPORT This report is preliminary unless electronic signature is present EXAM PICC line insertion 04/18/17. HISTORY IV access needed. PRE-PROCEDURE The procedure was explained to the patient and/or patient entry level sales representative including risks, benefits, potential complications and potential for alternative forms of treatment. Informed consent was obtained, and prior to initiating the procedure a formal timeout procedure was performed. PROCEDURE Using full standard sterile barrier technique, including caps, gowns, gloves, masks, as well as sterile skin preparation and standard sterile draping, the left arm was prepped and draped in the usual fashion, and real-time sterile ultrasound guidance was used to localize an arm vein and to confirm vessel patency. A hard copy ultrasound image was recorded. After local anesthesia with 1% Xylocaine, the vein was punctured using real-time sterile ultrasound guidance, and an 0.018 guidewire was advanced into the superior vena cava, using fluoroscopic guidance. A 4-Lithuanian single-lumen PICC was then measured and deployed with the tip positioned in the superior vena cava. The position of the line was documented with a radiographic image. The line was secured in place with an adhesive dressing and an antibiotic patch was applied. Total fluoro time was 0.1 minutes. A single fluoroscopic spot image was obtained. IMPRESSION 1. Successful placement of a 4-Lithuanian single-lumen Power PICC via the left arm under ultrasound and fluoroscopic guidance. The tip of the PICC is in good position in the superior vena cava. [facility] A Service of [facility] & [facility] RADIOLOGY TEXT RESULTS PATIENT: IAN SAL SR LOCATION: [facility] 339-01 : [birth year] UNIT #: [id number] AGE: [address]: Travis Dowell MD SEX: M ORDER DR: 2. A single fluoroscopic spot image was obtained. Dictated by... Tera Enamorado M.D. THIS IS AN ELECTRONICALLY VERIFIED REPORT Tera Enamorado M.D. at 04/18/2017 4:09 PM MARY/kayode TD: 04/18/2017 12:37 JOB #: [id number] MEDICAL IMAGING REPORT Page 1 of 1 COPY
--- NOTE | ~2017-04-15 | CR230 ---
[facility] A Service of [facility] & [facility] RADIOLOGY TEXT RESULTS PATIENT: IAN SAL SR LOCATION: [place] [address] : [birth year] UNIT #: [id number] AGE: [address]: Travis Dowell MD SEX: M ORDER DR: [id number] [address] [address] [id number] I MR#: [id number] Acc #: [id number] NAME: IAN SAL : 1950 SEX: M STUDY DATE/TIME: 04/17/2017 11:56 UNIT: [facility] ROOM: [facility] STUDY DESCRIPTION: CR Shoulder Min 2 View Rt Attending Physician: Travis Dowell M.D. Ordering Physician: Travis Dowell M.D. Primary Care Physician: No Primary Care Physician MEDICAL IMAGING REPORT This report is preliminary unless electronic signature is present EXAM Right shoulder, 2 views. INDICATION Postop right shoulder arthroplasty. COMPARISON Comparison with 04/14/2017 FINDINGS Stable appearance of the right shoulder arthroplasty. The alignment is normal. There is a drain in place and there is some gas within the subacromial space. IMPRESSION Postop changes as described. Dictated by... Art Villegas M.D. THIS IS AN ELECTRONICALLY VERIFIED REPORT Art Villegas M.D. at 04/17/2017 5:04 PM HERMINIA/lucie TD: 04/17/2017 13:53 JOB #: [id number] MEDICAL IMAGING REPORT Page 1 of 1 COPY
--- NOTE | ~2017-04-15 | DS ---
Unit #: [id number] #: [id number] Patient: IAN MONSALVE SR [id number] [address] [address] [id number] I MR#: [id number] NAME: IAN MONSALVE SR ROOM: [facility] Age: 66 Sex: M Admission Date: 04/15/2017 : 1950 Discharge Date: 04/21/2017 Attending Physician: Travis Dowell M.D. Primary Care Physician: Generic Doctor Not In System DISCHARGE SUMMARY ADMITTING DIAGNOSIS Right shoulder postop hematoma. DISCHARGE DIAGNOSES 1. Right shoulder postop hematoma. 2. Infected right reverse shoulder arthroplasty, status post incision and drainage and component exchange. SECONDARY DIAGNOSES 1. Chronic obstructive pulmonary disease. 2. Respiratory failure. 3. Posttraumatic stress disorder. 4. Hypertension. 5. Hyperlipidemia. 6. Gastroesophageal reflux disease. 7. Hypothyroidism. 8. Hypoxia. ATTENDING Dr. Dowell - Orthopedic Surgery. CONSULTING PHYSICIAN 1. Dr. Collier - Infectious Disease. 2. Dr. Jones - Pulmonary. PROCEDURES 1. On 04/15/2017, the patient underwent a right shoulder hematoma evacuation and debridement of the glenohumeral joint. Please see operative report for further details. 2. On 04/16, the patient then underwent a right reverse shoulder component exchange. Please see operative report for further details. BRIEF HISTORY Mr. Monsalve is a 66-year-old male who underwent a right reverse shoulder arthroplasty approximately two weeks ago. He returned for his postoperative visit with drainage coming from the wound that had a cloudy appearance. He was then taken to the OR for an I and D for the right shoulder. Cultures were positive for MRSA so he was then taken back to the OR on 04/16/2017 for component exchange. HOSPITAL COURSE On the night of surgery, the patient was transferred to the ICU for Unit #: [id number] #: [id number] Patient: IAN MONSALVE SR respiratory failure. He is being called by pulmonary. He is now weaned down to room air. He does have oxygen to be used as needed. Inhaled corticosteroids and long acting beta agonist inhalers were added to maximize his pulmonary status. He will go home on these. Smoking cessation was discussed with the patient. He will follow up as outpatient at [place] to be evaluated for obstructive sleep apnea. The patient's right shoulder cultures did show MSSA following his right shoulder hematoma evacuation on 04/15/2017. He was then taken back to the OR on 04/16/2017, for component exchange. ID was then consulted for antibiotic recommendations. His right shoulder incision has a Prevena wound vac dressing over it. This has yielded no drainage throughout the hospitalization. We will have nursing staff remove this at discharge and place a (1) dressing over the incision site. There is no surrounding erythema, warmth or hematoma around the incision site. He has remained neurovascularly intact in the median, ulnar and radial nerves. Normal sensation to light touch and all five digits. The patient has been seen by infectious disease following positive cultures for MSSA. A PICC line was ordered to be placed by ID. They also recommended that he be sent home on Kefzol 2 g IV every eight hours for six weeks as well as Rifampin 300 mg p.o. every 12 hours for six weeks. Then, his PICC line will be DC'd and he will go one Keflex 500 mg p.o. q.8 hours for three to six months. CONDITION AT DISCHARGE Stable. DISPOSITION The patient will be DC'd home with home health once improved by the [place]. DISCHARGE MEDICATIONS 1. Albuterol ProAir inhaler, two puffs q.i.d. as needed. 2. Spiriva, one inhalation every day. 3. Lexapro 10 mg p.o. at bedtime. 4. Remeron 15 mg p.o. at bedtime. 5. Rifampin 300 mg p.o. every 12 hours. 6. Seroquel 200 mg p.o. at bedtime. 7. Metoprolol 50 mg p.o. daily. 8. Docusate sodium 250 mg p.o. b.i.d. 9. Oxygen 2 L as needed for shortness of breath. 10. Bumex 1 mg p.o. daily. 11. Lipitor 20 mg p.o. at bedtime. 12. Lisinopril 10 mg p.o. daily. 13. Terazosin 2 mg p.o. at bedtime. 14. Aspirin 81 mg p.o. at bedtime. 15. [place] 10/325 mg, one tab p.o. q.4 hours. 16. Protonix 40 mg p.o. b.i.d. 17. Potassium 40 mEq b.i.d. 18. Synthroid 25 mcg p.o. daily. 19. Vitamin D2 50,000 units p.o. on . 20. Cefazolin 2 g IV every eight hours. DISCHARGE INSTRUCTIONS The patient will be DC'd home with home [facility] He is to perform daily dressing changes to the right upper extremity incision. He is not to get his incision wet until his followup appointment. He will follow up with Dr. Dowell in seven to ten days. He Unit #: [id number] #: [id number] Patient: IAN MONSALVE SR will remain non-weight bearing of the right upper extremity in a sling. He may remove the sling two to three times per day to perform pendulums and range of motion of the elbow, wrist and hand. [facility] and to be tested for obstructive sleep apnea. A weekly CBC, CMP, CRP and sed rates will be drawn. These results can be faxed to Dr. Collier's office. Once he has had the full six week course of Kefzol and Rifampin, his PICC line will be DC'd and he will be started on p.o. Keflex. Dictated by... Shukri Moreno APRN for Travis Dowell M.D. GIO/payton TD: 04/21/2017 12:54 JOB #: [id number] DISCHARGE SUMMARY Page 1 of 1 X SHUKRI MORENO APRN X DISCHARGE SUMMARY
[~2017-04-15 09:39] MED LIST changes: +OXYGEN; +PERCOCET5/325 PO; +PREDNISONE PO; +PROAIR HFA8.5 GM INH; +SPIRIVA18 MCG INH
[2017-04-15] MEDS ORDERED: HYDROCODON-ACE1 EAC5 PO (10:45)
[2017-04-15] MEDS ORDERED: NAPROSYN500 MG PO (10:45)
[2017-04-15 10:56] LABS: HEMATOCRIT 35.4 % (38.0-50.0); HEMOGLOBIN 11.1 gm/dL (13.0-16.0); MEAN CELL VOLUME 85.8 FL (83-96); MEAN CORPUSCULAR HGB CONC 31.5 g/dL (30-36); MEAN PLATELET VOLUME 7.3 FL (6.5-11.5); RED BLOOD COUNT 4.13 X10e (3.90-5.60); RED CELL DISTRIBUTION WIDTH 14.7 % (11.0-15.5); WHITE BLOOD COUNT 10.7 X10e3 (4.0-10.5)
[2017-04-16 02:46] LABS: BASOPHIL% 0.4 % (0-2.5); EOSINOPHIL# 0.1 X10e3 (0-0.7); EOSINOPHIL% 0.6 % (0.0-7.0); HEMATOCRIT 31.7 % (38.0-50.0); HEMOGLOBIN 9.9 gm/dL (13.0-16.0); LYMPHOCYTE# 1.4 X10e3 (1.0-3.5); LYMPHOCYTE% 12.1 % (17.0-45.0); MEAN CELL VOLUME 85.9 FL (83-96); MEAN CORPUSCULAR HEMOGLOBIN 26.8 PG (28-34); MEAN CORPUSCULAR HGB CONC 31.2 g/dL (30-36); MEAN PLATELET VOLUME 6.9 FL (6.5-11.5); MONOCYTE# 0.7 X10e3 (0-1.0); MONOCYTE% 5.7 % (3.0-12.0); NEUTROPHIL# 9.6 X10e3 (1.5-7.1); NEUTROPHIL% 81.2 % (40-75); PLATELET COUNT 311 X10e3 (140-420); RED BLOOD COUNT 3.69 X10e (3.90-5.60); RED CELL DISTRIBUTION WIDTH 15.2 % (11.0-15.5); WHITE BLOOD COUNT 11.8 X10e3 (4.0-10.5)
[2017-04-16 02:47] LABS: DIFF IND NO
[2017-04-16 03:11] LABS: BUN/CREATININE RATIO 17.14; CALCIUM SERUM 7.6 mg/dL (8.4-10.2); CREATININE SERUM 0.7 mg/dL (0.6-1.4); GLOM FILT RATE Estimated 98.4 mL/min (>60); POTASSIUM 3.9 mmol/L (3.5-5.1)
[2017-04-17 09:11] LABS: BASOPHIL% 0.1 % (0-2.5); EOSINOPHIL% 0.2 % (0.0-7.0); HEMATOCRIT 31.9 % (38.0-50.0); HEMOGLOBIN 9.7 gm/dL (13.0-16.0); LYMPHOCYTE% 7.4 % (17.0-45.0); MEAN CELL VOLUME 87.1 FL (83-96); MEAN CORPUSCULAR HEMOGLOBIN 26.5 PG (28-34); MEAN CORPUSCULAR HGB CONC 30.4 g/dL (30-36); MEAN PLATELET VOLUME 7.6 FL (6.5-11.5); MONOCYTE# 0.7 X10e3 (0-1.0); NEUTROPHIL# 11.4 X10e3 (1.5-7.1); NEUTROPHIL% 87.3 % (40-75); PLATELET COUNT 304 X10e3 (140-420); RED BLOOD COUNT 3.66 X10e (3.90-5.60); RED CELL DISTRIBUTION WIDTH 15.1 % (11.0-15.5); WHITE BLOOD COUNT 13.1 X10e3 (4.0-10.5)
[2017-04-17 09:13] LABS: DIFF IND NO
[2017-04-18 06:01] LABS: BASOPHIL# 0.1 X10e3 (0-0.3); BASOPHIL% 0.5 % (0-2.5); EOSINOPHIL# 0.1 X10e3 (0-0.7); EOSINOPHIL% 1.4 % (0.0-7.0); HEMATOCRIT 30.1 % (38.0-50.0); HEMOGLOBIN 9.4 gm/dL (13.0-16.0); LYMPHOCYTE# 1.5 X10e3 (1.0-3.5); LYMPHOCYTE% 14.3 % (17.0-45.0); MEAN CELL VOLUME 86.3 FL (83-96); MEAN CORPUSCULAR HEMOGLOBIN 27.1 PG (28-34); MEAN CORPUSCULAR HGB CONC 31.4 g/dL (30-36); MEAN PLATELET VOLUME 7.8 FL (6.5-11.5); MONOCYTE# 1.1 X10e3 (0-1.0); MONOCYTE% 10.7 % (3.0-12.0); NEUTROPHIL# 7.6 X10e3 (1.5-7.1); NEUTROPHIL% 73.1 % (40-75); PLATELET COUNT 272 X10e3 (140-420); RED BLOOD COUNT 3.48 X10e (3.90-5.60); WHITE BLOOD COUNT 10.3 X10e3 (4.0-10.5)
[2017-04-18 06:29] LABS: DIFF IND NO
[2017-04-18 07:17] LABS: BUN/CREATININE RATIO 17.14; CALCIUM SERUM 8.1 mg/dL (8.4-10.2); CREATININE SERUM 0.7 mg/dL (0.6-1.4); GLOM FILT RATE Estimated 98.4 mL/min (>60); POTASSIUM 4.7 mmol/L (3.5-5.1)
[2017-04-20 05:58] LABS: BUN/CREATININE RATIO 11.42; CALCIUM SERUM 8.1 mg/dL (8.4-10.2); CREATININE SERUM 0.7 mg/dL (0.6-1.4); GLOM FILT RATE Estimated 98.4 mL/min (>60)
[2017-04-22] MEDS ORDERED: RIFAMPIN300 M1 PO (17:59)
== END 2017-04-22 20:21 | disposition home or self-care (01) | DRG 463 ==
LOC: CSUR 09:39 → C4B 10:26 → CPACUOF 10:26 → CSUR 10:26 → CPACUOF 15:45 → CICCU3 15:45 → CSUR 15:45 → CICCU3 15:45 → C4B 18:30 → CPACUOF 18:30 → C4B 18:30 → CICCU3 04-16 20:28 → C4B 04-16 20:28 → CICCU3 04-16 20:28 → C3A PCU 04-17 14:14
PROVIDERS: Internal Medicine; Orthopaedic Surgery
PROC: 0JBD0ZZ Excision of Right Upper Arm Subcutaneous Tissue and Fascia, Open Approach (ICD-10-PCS; 2017-04-15)
PROC: 0R9J0ZZ Drainage of Right Shoulder Joint, Open Approach (ICD-10-PCS; 2017-04-15)
PROC: 0RPJ0JZ Removal of Synthetic Substitute from Right Shoulder Joint, Open Approach (ICD-10-PCS; 2017-04-16)
PROC: 0RRJ00Z Replacement of Right Shoulder Joint with Reverse Ball and Socket Synthetic Substitute, Open Approach (ICD-10-PCS; principal; 2017-04-16 17:30)
PROC: 02HV33Z Insertion of Infusion Device into Superior Vena Cava, Percutaneous Approach (ICD-10-PCS; 2017-04-18)
PROC: B548ZZA Ultrasonography of Superior Vena Cava, Guidance (ICD-10-PCS; 2017-04-18)
DX: T84.59XA Infection and inflammatory reaction due to other internal joint prosthesis, initial encounter (principal); J95.821 Acute postprocedural respiratory failure; M96.840 Postprocedural hematoma of a musculoskeletal structure following a musculoskeletal system procedure; J44.9 Chronic obstructive pulmonary disease, unspecified; Y79.1 Therapeutic (nonsurgical) and rehabilitative orthopedic devices associated with adverse incidents; Y92.9 Unspecified place or not applicable; B95.61 Methicillin susceptible Staphylococcus aureus infection as the cause of diseases classified elsewhere; F43.10 Post-traumatic stress disorder, unspecified; I10 Essential (primary) hypertension; E78.5 Hyperlipidemia, unspecified; K21.9 Gastro-esophageal reflux disease without esophagitis; E03.9 Hypothyroidism, unspecified; Z71.6 Tobacco abuse counseling; F32.9 Major depressive disorder, single episode, unspecified; F17.200 Nicotine dependence, unspecified, uncomplicated; I25.10 Atherosclerotic heart disease of native coronary artery without angina pectoris; Z95.5 Presence of coronary angioplasty implant and graft; R00.1 Bradycardia, unspecified; G47.33 Obstructive sleep apnea (adult) (pediatric); R60.0 Localized edema; D64.9 Anemia, unspecified
CPT/HCPCS: 71010; 73030; 76937; 77001; 80048; 80202; 83880; 85025; 85027; 85652; 86140; 87070; 87075; 87077; 87186; 87205; 93970; 94640; 94760; 94761; 97110; 97116; 97163; 97530; C1751; C1776; G8978-GP; G8979-GP; G8980-GP; J0131; J0330; J0690; J1100; J1170; J1642; J1720; J1940; J2250; J2270; J2370; J2405; J2710; J3010; J3370